=== PATIENT | male | born 1955 | race Caucasian/White ===

== ENCOUNTER 2025-01-08 00:30 | Emergency (ER) | payer OTHER ==
[2025-01-08] MEDS: Sodium Bicarbonate 8.4% 50 MEQ/50 ML Syringe IOSS STA (00:30)
[2025-01-08] MEDS: Calcium Chloride 10% 1 GM/10 ML Syringe IOSS STA (00:30)
[2025-01-08] MEDS: Amiodarone 150 MG/3 ML SDV IOSS STA (00:33)
[2025-01-08] MEDS: EPINEPHrine 1:10,000 1 MG/10 ML Syringe IOSS STA ×4 (00:34→00:43)
[2025-01-08] MEDS: Sodium Chloride 0.9% 1,000 ML IOSS ONE (00:36)
[2025-01-08] MEDS: 50% Dextrose in Water 50 ML Syringe IOSS STA (00:39)
[2025-01-08] MEDS: Amiodarone 150 MG/3 ML SDV IOSS ONE (00:41)
[2025-01-08] MEDS ORDERED: EPINEPHrine 1 MG/ML SDV IOSS STA ×2 (02:05→02:06)
[2025-01-08] MEDS ORDERED: Amiodarone 150 MG/3 ML SDV IVPUSH ONE (02:30)
== END 2025-01-08 02:58 | disposition expired ==
LOC: MW.ED 00:30
DX: I46.9 Cardiac arrest, cause unspecified (principal)
CPT/HCPCS: 31500; 92950; 92960; 99285; J0282; J7030; J0171; J3490